=== PATIENT | male | born 1970 | race Caucasian/White ===

== ENCOUNTER 2019-09-09 16:35 | Inpatient (IN) ==
[2019-09-09] MEDS ORDERED: METHOCARBAMOL 750 MG TABLET PO PRN (17:35)
[2019-09-09] MEDS ORDERED: DICYCLOMINE 10 MG CAPSULE PO PRN (17:35)
[2019-09-09] MEDS ORDERED: HydrOXYzine PAMOATE 25 MG CAPSULE PO PRN (17:35)
[2019-09-09] MEDS ORDERED: ACETAMINOPHEN 325 MG TABLET PO PRN (17:36)
[2019-09-09] MEDS ORDERED: DOCUSATE SODIUM 100 MG CAPSULE PO PRN (17:36)
[2019-09-09] MEDS ORDERED: ONDANSETRON 4 MG/2 ML VIAL IV PRN (17:36)
[2019-09-09] MEDS ORDERED: ENOXAPARIN 40 MG/0.4 ML SYRINGE SUBCUT SCH (18:00)
[2019-09-09 18:21] LABS: Basophils # 0.1 10*3/uL (0.0-0.2); Basophils % 0.6 % (0.0-0.8); Eosinophils # 0.2 10*3/uL (0.0-0.87); Eosinophils % 1.8 % (0.00-10.9); Hematocrit 49.3 VOL% (42.0-52.0); Hemoglobin 16.4 GM/DL (14.0-18.0); Immature Granulocytes % 0.3 %; Immature Granulocytes Absolute 0.03 #; Lymphocytes # 2.8 10*3/uL (1.4-4.0); Lymphocytes % 29.4 % (21.2-54.2); Mean Corpuscular HGB Conc 33.3 GM/DL (32-36); Mean Corpuscular Volume 95.2 FL (87-102); Mean Platelet Volume 10.8 FL (9.6-12.0); Monocytes % 7.6 % (1.7-12.7); Neutrophils % 60.3 % (38.7-73.9); Platelet Count 246 T/CUMM (130-400); Red Blood Count 5.18 MC/CUMM (3.8-5.5); Red Cell Distribution Width 12.9 % (9.3-17.3); White Blood Count 9.6 T/CUMM (4-12)
[2019-09-09] MEDS: NICOTINE 21 MG/24 HR PATCH TRANSDERM SCH (18:26)
[2019-09-09] MEDS: chlordiazePOXIDE 25 MG CAPSULE PO SCH (18:26)
[2019-09-09] MEDS ORDERED: THIAMINE INJ 100 MG, FOLIC ACID INJ 1 MG, MULTIVITAMIN INJ 10 ML in SODIUM CHLORIDE 0.9... IV ONE (18:30)
[2019-09-09 18:38] LABS: Alanine Aminotransferase 52 U/L (16-61); Albumin 3.8 G/DL (3.4-5.0); Alkaline Phosphatase 67 U/L (45-117); Aspartate Amino Transferase 37 U/L (0-37); Bilirubin,Total < 0.39 MG/DL (0.2-1.0); Blood Urea Nitrogen 29 MG/DL (7-18); Calcium 8.5 MG/DL (8.5-10.1); Estimated Glom Filtration Rate 68 ML/MIN; Glucose 93 MG/DL (74-106); Osmolality,Calculated 280.7 MOS/KG (273-304); Total Protein 7.4 G/DL (6.4-8.3)
[2019-09-09] MEDS: ENOXAPARIN 40 MG/0.4 ML SYRINGE SUBCUT SCH (21:04)
[2019-09-09 22:39] LABS: Barbiturates Screen,Urine Negative (Negative); Benzodiazepines Screen,Urine Negative (Negative); Cannabinoid Screen,Urine Negative (Negative); Opiate Screen,Urine Negative (Negative); Phencyclidine Screen,Urine Negative (Negative)
[2019-09-10] MEDS: chlordiazePOXIDE 25 MG CAPSULE PO SCH ×4 (00:30→17:14)
[2019-09-10 09:07] LABS: Basophils # 0.1 10*3/uL (0.0-0.2); Basophils % 0.9 % (0.0-0.8); Eosinophils # 0.2 10*3/uL (0.0-0.87); Eosinophils % 2.4 % (0.00-10.9); Hematocrit 44.4 VOL% (42.0-52.0); Hemoglobin 14.6 GM/DL (14.0-18.0); Immature Granulocytes % 0.5 %; Immature Granulocytes Absolute 0.03 #; Lymphocytes # 2.6 10*3/uL (1.4-4.0); Lymphocytes % 38.9 % (21.2-54.2); Mean Corpuscular HGB Conc 32.9 GM/DL (32-36); Mean Corpuscular Volume 94.5 FL (87-102); Mean Platelet Volume 11.1 FL (9.6-12.0); Monocytes % 7.6 % (1.7-12.7); Neutrophils % 49.7 % (38.7-73.9); Platelet Count 195 T/CUMM (130-400); Red Cell Distribution Width 12.8 % (9.3-17.3); White Blood Count 6.6 T/CUMM (4-12)
[2019-09-10 09:22] LABS: Calcium 7.9 MG/DL (8.5-10.1); Osmolality,Calculated 273.7 MOS/KG (273-304)
[2019-09-10] MEDS: PANTOPRAZOLE 40 MG TABLET PO SCH (09:23)
[2019-09-10] MEDS: lisinopriL 20 MG TABLET PO SCH (09:23)
[2019-09-10] MEDS: DULoxetine 20 MG CAPSULE PO SCH (09:23)
[2019-09-10] MEDS: NICOTINE 21 MG/24 HR PATCH TRANSDERM SCH (09:23)
[2019-09-10] MEDS: ENOXAPARIN 40 MG/0.4 ML SYRINGE SUBCUT SCH (21:22)
[2019-09-11] MEDS: chlordiazePOXIDE 25 MG CAPSULE PO SCH ×3 (02:43→18:09)
[2019-09-11 06:02] LABS: Basophils # 0.1 10*3/uL (0.0-0.2); Basophils % 0.9 % (0.0-0.8); Eosinophils # 0.2 10*3/uL (0.0-0.87); Eosinophils % 3.1 % (0.00-10.9); Hematocrit 43.1 VOL% (42.0-52.0); Hemoglobin 14.2 GM/DL (14.0-18.0); Immature Granulocytes % 0.2 %; Immature Granulocytes Absolute 0.01 #; Lymphocytes # 2.7 10*3/uL (1.4-4.0); Mean Corpuscular HGB Conc 32.9 GM/DL (32-36); Mean Corpuscular Volume 94.3 FL (87-102); Mean Platelet Volume 11.1 FL (9.6-12.0); Neutrophils % 40.8 % (38.7-73.9); Platelet Count 170 T/CUMM (130-400); Red Blood Count 4.57 MC/CUMM (3.8-5.5); Red Cell Distribution Width 12.8 % (9.3-17.3); White Blood Count 5.7 T/CUMM (4-12)
[2019-09-11 06:16] LABS: Calcium 8.3 MG/DL (8.5-10.1); Osmolality,Calculated 281.1 MOS/KG (273-304)
[2019-09-11] MEDS: lisinopriL 20 MG TABLET PO SCH (08:40)
[2019-09-11] MEDS: PANTOPRAZOLE 40 MG TABLET PO SCH (08:40)
[2019-09-11] MEDS: DULoxetine 20 MG CAPSULE PO SCH (08:40)
[2019-09-11] MEDS: NICOTINE 21 MG/24 HR PATCH TRANSDERM SCH (08:40)
[2019-09-11] MEDS: ENOXAPARIN 40 MG/0.4 ML SYRINGE SUBCUT SCH (21:43)
[2019-09-12] MEDS: chlordiazePOXIDE 25 MG CAPSULE PO SCH ×2 (02:24→09:39)
[2019-09-12] MEDS ORDERED: amLODIPine 5 MG TABLET PO SCH (09:00)
[2019-09-12] MEDS ORDERED: lisinopriL 10 MG TABLET PO SCH (09:00)
[2019-09-12] MEDS: NICOTINE 21 MG/24 HR PATCH TRANSDERM SCH (09:38)
[2019-09-12] MEDS: DULoxetine 20 MG CAPSULE PO SCH (09:39)
[2019-09-12] MEDS: PANTOPRAZOLE 40 MG TABLET PO SCH (09:39)
[2019-09-12 12:51] VITALS: BP 120/87
== END 2019-09-12 15:23 | disposition home or self-care (01) | DRG 897 ==
LOC: N.4E 17:07 → SUATTDRO 17:07
PROVIDERS: ADMIT Internal Medicine; ATTEND Internal Medicine